=== PATIENT | male | born 1975 | race Caucasian/White ===

== ENCOUNTER → 2017-10-02 | Outpatient (CLI) | payer OTHER | LOC: M PLARAD 09:51 | DX: M54.12 Radiculopathy, cervical region (principal); M79.1 Myalgia; M51.26 Other intervertebral disc displacement, lumbar region; M48.061 Spinal stenosis, lumbar region without neurogenic claudication | CPT/HCPCS: 72148 ==

== ENCOUNTER → 2017-10-02 | Outpatient (CLI) | payer OTHER | LOC: M RAD 11:20 | DX: M47.892 Other spondylosis, cervical region (principal) | CPT/HCPCS: 72110 ==